=== PATIENT | female | born 1970 | race Caucasian/White ===

== ENCOUNTER 2019-05-17 15:31 | Emergency (ER) | payer OTHER ==
[~2019-05-17] VITALS: Ht 160 cm; Wt 79.5 kg
[~2019-05-17 15:31] MED LIST: ACET-141 PO; IBUP-1561 PO; METH750T93 PO
[2019-05-17 15:57] VITALS: BP 143/78; PULSE 78; RESP 18; Ht 160 cm; Wt 79.5 kg
== END 2019-05-17 18:21 | disposition home or self-care (01) ==
LOC: E/R 15:31
DX: M79.671 Pain in right foot (principal); M25.532 Pain in left wrist
CPT/HCPCS: 73090; 73110; 73630; Z7502